=== PATIENT | female | born 1995 | race Caucasian/White ===

== ENCOUNTER 2019-08-25 07:55 | Outpatient (CLI) | payer BC ==
[2019-08-25] MEDS ORDERED: ASCO500T8 PO (08:19)
[2019-08-25] MEDS ORDERED: MONT10TA6 PO (08:19)
[2019-08-25 08:43] LABS: BASOPHILS # (AUTO) 0.04 x10^3/uL (0-0.1); BASOPHILS % (AUTO) 1 % (0-1); EOSINOPHILS # (AUTO) 0.11 x10^3/uL (0-0.4); EOSINOPHILS % (AUTO) 1 % (1-7); LYMPHOCYTES # (AUTO) 2.07 x10^3/uL (1-3.4); LYMPHOCYTES % (AUTO) 28 % (22-44); MD NO; MEAN CORPUSCULAR HEMOGLOBIN 30.4 pg (27.0-34.8); MEAN CORPUSCULAR HGB CONC 33.4 g/dL (32.4-35.8); MEAN CORPUSCULAR VOLUME 91.1 fL (80-100); MEAN PLATELET VOLUME 8.7 fL (7.4-10.4); MONOCYTES # (AUTO) 0.72 x10^3/uL (0.2-0.8); MONOCYTES % (AUTO) 10 % (2-9); NEUTROPHILS # (AUTO) 4.54 x10^3/uL (1.8-6.8); NEUTROPHILS % (AUTO) 61 % (42-75); PLATELET COUNT 219 x10^3/uL (130-400); RED BLOOD COUNT 5.48 x10^6/uL (3.82-5.3); RED CELL DISTRIBUTION WIDTH 13.4 % (9.6-15.2)
[2019-08-25 08:53] LABS: MICROSCOPIC NOT IND
[2019-08-25 08:55] LABS: ALBUMIN 4.4 g/dL (3.4-5.0); ANION GAP 7 mmol/L (5-15); CALCIUM 8.6 mg/dL (8.5-10.1); CHLORIDE 107 mmol/L (98-107)
[2019-08-25 08:59] LABS: ALANINE AMINOTRANSFERASE 25 U/L (12-78); ALKALINE PHOSPHATASE 90 U/L (45-117); BILIRUBIN,TOTAL 0.9 mg/dL (0.2-1.0); CREATININE 0.71 mg/dL (0.55-1.02); T4 (THYROXINE) 6.1 mcg/dL (4.8-13.9); TOTAL PROTEIN 7.9 g/dL (6.4-8.2)
[2019-08-25 09:11] LABS: CULTURE INDICATED? NO
== END 2019-08-25 23:59 | disposition home or self-care (01) ==
LOC: STAR 07:55
PROVIDERS: ATTEND Obstetrics & Gynecology Gynecology
DX: Z01.818 Encounter for other preprocedural examination (principal); R10.2 Pelvic and perineal pain; N94.10 Unspecified dyspareunia; Z88.2 Allergy status to sulfonamides
CPT/HCPCS: 36415; 80053; 81003; 84436; 84443; 84703; 85025

== ENCOUNTER 2019-09-01 10:33 | Day surgery (SDC) | payer BC ==
[~2019-09-01] VITALS: Ht 163.8 cm; Wt 65.7 kg
[~2019-09-01 10:33] MED LIST: ASCO500T8 PO; MONT10TA6 PO
[2019-09-01] MEDS ORDERED: MIDAZOLAM 1 MG/ML, 2ML ONE (11:04)
[2019-09-01] MEDS ORDERED: FENTANYL PF 100 MCG/2ML ONE (11:06)
[2019-09-01 11:10] VITALS: BP 112/78
[2019-09-01] MEDS ORDERED: LACTATED RINGERS 1,000 ML IV SCH (11:12)
[2019-09-01 11:17] LABS: HCG UR SG 1.003 (1.003-1.030)
[2019-09-01] MEDS ORDERED: LORazepam 2 MG/ML, 1ML IVPush PRN (11:30)
[2019-09-01] MEDS ORDERED: ONDANSETRON ODT 8 MG PO ONE (11:30)
[2019-09-01] MEDS ORDERED: METOCLOPRAMIDE 5 MG/ML, 2ML IV PRN (11:30)
[2019-09-01] MEDS ORDERED: HYDROmorphone 2 MG/ML, 1ML IVPush PRN (11:30)
[2019-09-01] MEDS ORDERED: FENTANYL PF 100 MCG/2ML IV PRN (11:30)
[2019-09-01] MEDS ORDERED: OXYcodone 5 MG/5 ML ORAL.SOL UDC PO PRN (11:30)
[2019-09-01] MEDS ORDERED: ACETAMINOPHEN 500 MG TABLET PO ONE (11:30)
[2019-09-01] MEDS ORDERED: ONDANSETRON 2MG/ML, 2ML IV PRN (11:30)
[2019-09-01] MEDS ORDERED: ROCURONIUM 10MG/ML,5ML ONE (11:43)
[2019-09-01] MEDS ORDERED: PROPOFOL 10 MG/ML, 20ML ONE (11:43)
[2019-09-01] MEDS ORDERED: LIDOCAINE 1%-EPI 1:100K, 20ML ONE (12:06)
[2019-09-01] MEDS ORDERED: OXYcodone 5 MG/5 ML ORAL.SOL UDC ONE (13:18)
[2019-09-01] MEDS ORDERED: MEPERIDINE/PF 25MG/ML,1ML ONE ×2 (13:18→13:38)
[2019-09-01] MEDS: MEPERIDINE/PF 25MG/ML,1ML IVPush PRN ×2 (13:20→13:40)
[2019-09-01] MEDS ORDERED: KETOROLAC 30 MG/1 ML ONE (15:58)
[2019-09-01] MEDS ORDERED: SUGAMMADEX 200 MG/2 ML IVPush ONE (15:58)
== END 2019-09-01 15:40 | disposition home or self-care (01) ==
LOC: OUT 10:33
PROVIDERS: ATTEND Obstetrics & Gynecology Gynecology
DX: G89.29 Other chronic pain (principal); R10.2 Pelvic and perineal pain; N73.6 Female pelvic peritoneal adhesions (postinfective); N94.12 Deep dyspareunia; Z88.2 Allergy status to sulfonamides; Z97.5 Presence of (intrauterine) contraceptive device; Z98.890 Other specified postprocedural states
CPT/HCPCS: 49329; 81025; J1885; J2175; J2250; J2704; J3010; J3490; Q0162